=== PATIENT | male | born 1955 | race Caucasian/White ===

== ENCOUNTER 2020-12-17 10:34 | Emergency (ER) | payer BC ==
[2020-12-17 10:53] VITALS: BMI 22.8
[2020-12-17 11:57] LABS: BASO % 1.3 % (0-2.0); HEMATOCRIT 37.9 % (35.4-49); HEMOGLOBIN 13.1 GM/dL (11.7-16.9); LYMPH % 26.4 % (8-40); MCHC 34.5 g/dl (32.0-35.9); MEAN CELL VOLUME 92.9 fl (80-96); MEAN PLT VOLUME 7.6 fl (7.5-11.1); MONO % 6.5 % (3.8-10.2); NEUT % 63.8 % (42.8-82.8); PLATELET COUNT 321 10^3/uL (134-434); RBC 4.08 M/mm3 (4.00-5.60); RDW 13.6 % (11.9-15.9); WHITE BLOOD COUNT 5.1 K/mm3 (4.0-10.0)
[2020-12-17 12:19] LABS: CHLORIDE 107 mmol/L (98-107); SODIUM 139 mmol/L (136-145)
[2020-12-17 12:21] LABS: BLOOD UREA NITROGEN 12.7 mg/dL (7-18); CALCIUM 9.8 mg/dL (8.5-10.1)
[2020-12-17 12:22] LABS: ALBUMIN 3.6 g/dl (3.4-5.0); ANION GAP 4 MMOL/L (8-16); CO2 28 mmol/L (21-32); GLUCOSE,RANDOM 95 mg/dL (74-106)
[2020-12-17 12:25] LABS: SGOT/AST 19 U/L (15-37); SGPT/ALT 23 U/L (13-61)
[2020-12-17 12:26] LABS: BILIRUBIN,TOTAL 0.3 mg/dL (0.2-1); TOT PROT 7.7 g/dl (6.4-8.2)
[2020-12-17 12:28] LABS: ALK PHOS 129 U/L (45-117)
[2020-12-17 16:35] VITALS: BP 142/85; PULSE 72; TEMP 98.6
== END 2020-12-17 16:36 | disposition home or self-care (01) ==
LOC: JER 10:34
DX: R07.9 Chest pain, unspecified (principal)
CPT/HCPCS: 36415; 71046-TC-FY; 71275-TC; 74174-TC; 80053; 82550; 84484; 85025; 85730; 93005; 93010; 99285-25; C9803; Q9967; U0003; U0005